=== PATIENT | male | born 1965 | race Caucasian/White ===

== ENCOUNTER → 2021-02-27 11:07 | Outpatient (BNVA) | payer BC, SELFPAY | PROVIDERS: PCP Nurse Practitioner Family; Referring Provider Nurse Practitioner Family; Visit Provider Surgery ==

== ENCOUNTER 2021-03-10 07:54 | Day surgery (SDC) | payer BC, SELFPAY ==
--- NOTE | 2021-03-06 10:49 | HO.ANESPROP2 ---
Documented by User: Margie Avila 03/06/21 10:50 HPI - Anesthesia Eval Consult details Narrative: 55yo M for Left Excision of Earlobe Keloid PMFSH Active Problems Active Problems: All Active Problems (Updated 02/27/21 @ 15:07 by Dougie Rome MD) Keloid scar of skin (Acute) Dermoid cyst of left ear (Acute) Past Medical History Medical History Smoker Family History Family History Father Lung cancer Mother Liver failure Sister Breast cancer Surgical History Surgical History H/O eye surgery H/O surgical removal of keloid History of back surgery Social History Social History Alcohol intake: current Alcohol intake frequency: a few times a week Smoking Status: Current every day smoker Cigarettes Per Day: 10 Use of substances other than those prescribed or required for medical reasons: No Are you DNR?: No Advance Directives: No Advance Directives Information Provided: Yes Meds Allergies Allergy/AdvReac Type Severity Reaction Status Date / Time No Known Allergies Allergy Verified 03/10/21 08:32 Home Medications Medication Instructions Recorded Confirmed Last Taken Type No Known Home Meds 01/14/21 02/27/21 Unknown History Exam Exam Date and Time: March 06, 2021 1049 Assessment and Plan Assessment Anesthesia Assessment: Chart Reviewed Documented by User: Katie Guaman 03/10/21 09:06 PMFSH Past Medical History Medical History Smoker Family History Family History Father Lung cancer Mother Liver failure Sister Breast cancer Family history of problems with anesthesia: No Surgical History Surgical History H/O eye surgery H/O surgical removal of keloid History of back surgery History of Problems with Anesthesia: No Social History Social History Alcohol intake: current Alcohol intake frequency: a few times a week Smoking Status: Current every day smoker Cigarettes Per Day: 10 Use of substances other than those prescribed or required for medical reasons: No Are you DNR?: No Advance Directives: No Advance Directives Information Provided: Yes Meds Allergies Allergy/AdvReac Type Severity Reaction Status Date / Time No Known Allergies Allergy Verified 03/10/21 08:32 Home Medications Medication Instructions Recorded Confirmed Last Taken Type No Known Home Meds 01/14/21 02/27/21 Unknown History Exam Height,Weight and Vital Signs: Vital Signs Temp Pulse Resp BP Pulse Ox 03/10/21 08:33 99.4 F 73 16 157/84 H 99 Airway Mallampati Class: II TM Dist: >3cm Neck ROM: Full Heart: RRR Lungs: CTAB Assessment and Plan Assessment Anesthesia Assessment: Anesthesia Plan Discussed and Chart Reviewed Final Anesthetic Review NPO: Yes ASA Class: II Final Preanesthetic Review: No Changes in Pt Med Stat, Meds/Allgs Chart Reviewed, Consent Obtained/Reviewed and Anes Risks/Benef Reviewed Patient Risk: Low Procedure Risk: Low Assessment/Block/Sedation in SS: Assess/Block/Sedation-SS Anesthetic Plan Anesthetic Plan: MAC: Disposition: Standard PACU
[2021-03-10 08:33] VITALS: BP 157/84; PULSE 73; RESP 16; TEMP 37.4; O2SAT 99; BMI 26.6
[2021-03-10] MEDS: Lactated Ringers 1,000 ML 100 ML IVCONT (08:51)
--- NOTE | 2021-03-10 09:25 | MHC.SHP ---
Pre-Procedural Eval Section A The patient is an INPATIENT: No Changes since office visit: Yes Patient answered all questions; No Cold of Flu in the past 2 weeks, No New Medical Problems and No Changes in Medication The History & Physical has been completed within 30 days and I have reviewed it.: Yes Section B Chief Complaint: Keloid scar of skin Allergies: Allergies Allergy/AdvReac Type Severity Reaction Status Date / Time No Known Allergies Allergy Verified 03/10/21 08:32 Plan Diagnosis/Plan: Unchanged I have reviewed the history and physical and performed a pertinent physical examination on my patient. No changes have occurred unless specified.
--- NOTE | 2021-03-10 10:42 | P.OP_ITS ---
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 Operative findings: Large keloid of the left ear lobe measuring approximately 1 cm. Specimen: Keloid left ear lobe Estimated blood loss: 5 mL Complications: None Procedure details: Patient brought to the OR and placed in a supine position. After administering light sedation the patient's left earlobe was prepped with Betadine and draped in a sterile fashion. A surgical time-out was called the consent confirmed. Patient received preoperative antibiotics and Venodyne boots were in place. Local anesthesia consisting of lidocaine 1% plus Sensorcaine 0.25% plain was infiltrated in the skin around the ear lobe. An elliptical incision was then created to wedge the keloid which measured approximately 1 cm. Dissection was continued down through the ear lobe, both anterior and posterior. This included a residual piercing which extended to the posterior wall of the ear lobe. There was were completely excised and sent to pathology for further examination. After assuring adequate hemostasis with electrocautery, skin was reapproximated using interrupted 5 0 nylon sutures. Pressure was held to maintain hemostasis. A pressure dressing was then applied and secured using paper tape. The patient tolerated procedure well. Sponge, instrument, and needle counts were reported as correct. The patient was transferred to PACU in stable condition.
[2021-03-10 10:45] VITALS: BP 130/89; PULSE 62; RESP 16; TEMP 37.3; O2SAT 98
[2021-03-10 11:00] VITALS: BP 144/77; PULSE 59; RESP 18; TEMP 37.2; O2SAT 97
== END 2021-03-10 11:24 | disposition home or self-care (01) ==
PROVIDERS: PCP Nurse Practitioner Family; Visit Provider Surgery
PROC: (CPT 11441; principal; 2021-03-10 09:40)
DX: L91.0 Hypertrophic scar (principal); L56.9 Acute skin change due to ultraviolet radiation, unspecified; F17.210 Nicotine dependence, cigarettes, uncomplicated
CPT/HCPCS: 11441; J0690; J2250; J3010

== ENCOUNTER → 2021-03-18 09:32 | Outpatient (BNVA) | payer BC, SELFPAY | PROVIDERS: PCP Nurse Practitioner Family; Visit Provider Surgery ==

== ENCOUNTER 2021-04-18 09:13 | Outpatient (REF) | payer BC, SELFPAY ==
[2021-04-18 12:10] LABS: Prostate Specific Antigen Scr 0.91 ng/mL (<0.05-4.0); TSH reflex Free T4 0.81 uIU/mL (0.32-4.0)
[2021-04-18 12:16] LABS: Alanine Aminotransferase 31 U/L (0-40); Albumin Level 4.2 g/dL (3.5-5.0); Alkaline Phosphatase 61 U/L (39-117); Anion Gap 13 (12-20); Aspartate Amino Transferase 21 U/L (5-37); Bilirubin Total 0.9 mg/dL (0.0-1.0); Blood Urea Nitrogen 14 mg/dL (9-16); Calcium 9.4 mg/dL (8.4-10.2); Carbon Dioxide 26 mmol/L (22-29); Chloride 105 mmol/L (96-108); Cholesterol 245 mg/dL; Estimated Glomerular Filt Rate > 60; Glucose Fasting 90 mg/dL (60-99); HDL Cholesterol 67 mg/dL; LDL Cholesterol Calculated 154 mg/dl; Potassium 4.1 mmol/L (3.3-5.1); Sodium 140 mmol/L (135-145); Total Protein 6.7 g/dL (6.5-8.0); Triglycerides 121 mg/dL
== END 2021-04-18 09:14 | disposition home or self-care (01) ==
LOC: HO.HMGCLDS 09:13
PROVIDERS: PCP Nurse Practitioner Family; Visit Provider Nurse Practitioner Family
DX: Z00.00 Encounter for general adult medical examination without abnormal findings (principal); Z12.5 Encounter for screening for malignant neoplasm of prostate
CPT/HCPCS: 36415; 80053; 80061; 84153; 84443

== ENCOUNTER → 2022-03-13 15:52 | Outpatient (BNVA) | payer OTHER, SELFPAY | PROVIDERS: PCP Nurse Practitioner Family; Referring Provider Nurse Practitioner Family; Visit Provider Nurse Practitioner | DX: R19.5 Other fecal abnormalities (principal); Z12.11 Encounter for screening for malignant neoplasm of colon | CPT/HCPCS: 99202; 99212 ==

== ENCOUNTER 2022-03-23 11:05 | Outpatient (REF) | payer OTHER, SELFPAY ==
[2022-03-23 14:04] LABS: Alanine Aminotransferase 35 U/L (0-40); Albumin Level 4.6 g/dL (3.5-5.0); Alkaline Phosphatase 70 U/L (39-117); Anion Gap 13 (12-20); Aspartate Amino Transferase 21 U/L (5-37); Bilirubin Total 0.7 mg/dL (0.0-1.0); Blood Urea Nitrogen 20 mg/dL (9-16); Carbon Dioxide 26 mmol/L (22-29); Chloride 103 mmol/L (96-108); Estimated Glomerular Filt Rate > 60; Glucose Random 118 mg/dL (60-115); Potassium 4.5 mmol/L (3.3-5.1); Sodium 137 mmol/L (135-145); Total Protein 7.3 g/dL (6.5-8.0)
== END 2022-03-23 11:06 | disposition home or self-care (01) ==
LOC: HO.HMGCLDS 11:05
PROVIDERS: PCP Nurse Practitioner Family; Visit Provider Nurse Practitioner
DX: R19.5 Other fecal abnormalities (principal)
CPT/HCPCS: 36415; 80053

== ENCOUNTER 2022-10-15 09:57 | Outpatient (REF) | payer OTHER, SELFPAY ==
[2022-10-15 11:14] LABS: MANUAL DIFF FLAG NO
[2022-10-15 11:17] LABS: Appearance Urine Clear; Color Urine Yellow; Glucose Urine UA Negative (Negative); Leukocyte Esterase Urine Negative (Negative); Nitrite Urine Negative (Negative); PH 6.5 (5.0-9.0); Specific Gravity - Urine 1.025 (1.005-1.025); Urine Blood Negative (Negative); Urine Ketones Trace mg/dL (Negative); Urine Protein Negative (Neg-Trace)
[2022-10-15 11:19] LABS: Basophils Percent Auto 0.4 % (0-2); Eosinophils Absolute Auto 0.4 X10*3/uL (0.0-0.4); Eosinophils Percent Auto 5.8 % (0-4); Hematocrit 45.2 % (42.0-52.0); Hemoglobin 15.1 g/dl (14.0-18.0); Imm Gran Abs Auto 0.02 X10*3/uL (0.00-0.03); Imm Gran Pct Auto 0.3 % (0.0-0.4); Lymphocytes Absolute Auto 3.3 X10*3/uL (1.2-4.9); Lymphocytes Percent Auto 42.9 % (20-40); Mean Corpuscular HGB Conc 33.4 g/dl (31.0-36.0); Mean Corpuscular Hemoglobin 31.3 pg (27.0-33.0); Mean Corpuscular Volume 93.8 fL (80.0-98.0); Monocytes Absolute Auto 0.6 X10*3/uL (0.1-1.2); Monocytes Percent Auto 7.5 % (2-11); Neutrophils Absolute Auto 3.3 x10*3/uL (2.0-8.3); Neutrophils Percent Auto 43.1 % (45-73); Platelet Count 296 X10*3/uL (160-400); Red Blood Count 4.82 X10*6/uL (4.60-5.80); Red Cell Distribution Width 12.2 % (11.0-16.0); White Blood Count 7.6 X10*3/uL (4.8-10.8)
[2022-10-15 12:18] LABS: Alanine Aminotransferase 36 U/L (0-40); Albumin Level 4.4 g/dL (3.5-5.0); Alkaline Phosphatase 66 U/L (39-117); Anion Gap 10 (12-20); Aspartate Amino Transferase 23 U/L (5-37); Bilirubin Total 0.8 mg/dL (0.0-1.0); Blood Urea Nitrogen 18 mg/dL (9-16); Calcium 9.4 mg/dL (8.4-10.2); Carbon Dioxide 29 mmol/L (22-29); Chloride 103 mmol/L (96-108); Cholesterol 191 mg/dL; Estimated Glomerular Filt Rate > 60; Glucose Fasting 104 mg/dL (60-99); HDL Cholesterol 52 mg/dL; LDL Cholesterol Calculated 110 mg/dl; Potassium 4.2 mmol/L (3.3-5.1); Prostate Specific Antigen Scr 1.42 ng/mL (<0.05-4.0); Sodium 138 mmol/L (135-145); Total Protein 6.8 g/dL (6.5-8.0); Triglycerides 146 mg/dL
== END 2022-10-15 09:58 | disposition home or self-care (01) ==
LOC: HO.HMGCLDS 09:57
PROVIDERS: PCP Nurse Practitioner Family; Visit Provider Nurse Practitioner Family
DX: Z12.5 Encounter for screening for malignant neoplasm of prostate (principal); E78.5 Hyperlipidemia, unspecified; I10 Essential (primary) hypertension
CPT/HCPCS: 36415; 80053; 80061; 81003; 84153; 84443; 85025

== ENCOUNTER → 2022-11-25 09:36 | Outpatient (BNVA) | payer OTHER, SELFPAY | PROVIDERS: PCP Nurse Practitioner Family; Visit Provider Orthopaedic Surgery | DX: M72.0 Palmar fascial fibromatosis [Dupuytren] (principal) | CPT/HCPCS: 99202 ==

== ENCOUNTER 2023-04-27 08:32 | Outpatient (AMB) | payer OTHER, SELFPAY ==
[2023-04-27 08:37] VITALS: BP 148/96; PULSE 67; O2SAT 100; BMI 27.6
--- NOTE | 2023-04-27 08:37 | A.OFFPC_ITS ---
Vital Signs 04/27/23 08:37 Height 5 ft 9 in Weight 187 lb BMI 27.6 BP 148/96 H Blood Pressure Location Rt brachial Position Sitting Pulse 67 Pulse Source Pulse Oximeter Pulse Oximetry (%) 100 Oxygen Delivery Method Room Air Intake Visit Reasons: 6 month follow up Allergies No Known Allergies Allergy (Verified 04/27/23 08:38) Medication List - Last Reconciled 04/27/23 by LELAND Samuels atorvastatin 10 mg PO BEDTIME 90 days bisacodyl (Dulcolax (bisacodyl)) 10 mg (2 x 5 mg) PO ONCE 1 day latanoprost 0.005% 1 drp ophthalmic (eye) BEDTIME [id number] 140-9-5.2 gram (Plenvu) 1 ea PO BID polyethylene glycol 3350 (Miralax) 238 grams PO ONCE 1 day timolol maleate 0.5% drps ophthalmic (eye) BID Tobacco use date assessed: 04/27/23 Dental Screening Dental Screen Date: 04/27/23 Did you have a dental visit in the last 12 months?: No Did you have a dental problem in the last 6 months where you did not have access to dental care?: No HPI 6 month follow up HPI Details HTN: not hypertensive at home (see previous logs). 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 Dyslipidemia: On atorvastatin 10mg. Will order labs. Denies chest pain, shortness of breath, headache, dizziness, and blurred vision. 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 Betito Locke, Nancy Mendosa, Álvaro Escoto and colleagues, with an educational florence from [employer]. Review of Systems Const Reports as per HPI Physical exam (Primary Care) Vital Signs: Last Vital Signs Pulse 67 04/27/23 08:37 BP 148/96 H 04/27/23 08:37 Pulse Ox 100 04/27/23 08:37 Oxygen Delivery Method Room Air 04/27/23 08:37 BMI result Body Mass Index 27.6 Tobacco/Smoking Status: Tobacco use Status Tobacco use date assessed 04/27/23 04/27/23 08:41 Patient Tobacco Use Status Current everyday Tobacco 04/27/23 08:41 e-Cigarette/Vaping Use Never Used 04/27/23 08:41 Thrive Assessment: Date of Thrive Assessment Date Thrive assessed 04/15/22 04/27/23 08:41 Const General: cooperative, healthy appearing, comfortable and no acute distress Orientation/consciousness: patient oriented x3 Resp Effort & Inspection: normal respiratory effort Auscultation: clear to auscultation bilaterally Cardio Palpation: normal PMI Rate: regular rate Rhythm: regular rhythm Heart sounds: S1 normal heart sound present, S2 normal heart sound present and no murmurs Neuro General: patient oriented x3 Extrem Right lower extremity: no edema Left lower extremity: no edema Psych Appearance: grossly normal Mental Status: mental status grossly normal Speech and movement: Normal speech and movement present Affect: normal affect Attitude: cooperative Thought process: Normal thought process present Thought content: Normal thought content present Insight: Good insight present (Psych) Judgement: Good judgement present (Psych) Assessment and Plan Assessment & Plan (1) HTN (hypertension): Code(s): I10 - Essential (primary) hypertension Plan: Continue to monitor BP at home (2) Dyslipidemia: Code(s): E78.5 - Hyperlipidemia, unspecified Plan: Labs ordered (3) Screening PSA (prostate specific antigen): Code(s): Z12.5 - Encounter for screening for malignant neoplasm of prostate Plan: PSA ordered Plan The patient agreed to the use of a registered medical assistant for this encounter. Scribed for LISA Shah-BC by Susana Lucia registered medical assistant, on 04/27/2023 at 08:50 EST. Orders: Orders Comprehensive [place]ument. Panel Fast Today E78.5 - Hyperlipidemia, unspecified, I10 - Essential (primary) hypertension Lipid Panel Today E78.5 - Hyperlipidemia, unspecified, I10 - Essential (primary) hypertension TSH reflex Free T4 Today E78.5 - Hyperlipidemia, unspecified, I10 - Essential (primary) hypertension Complete Blood Count Auto Diff Today E78.5 - Hyperlipidemia, unspecified, I10 - Essential (primary) hypertension UA CC w/rflx Micro + Cult Today E78.5 - Hyperlipidemia, unspecified, I10 - Essential (primary) hypertension Prostate Specific Antigen Scr Today Z12.5 - Encounter for screening for malignant neoplasm of prostate Coding Level of Care Code Est Pt Level 3 (52144) Diagnoses HTN (hypertension) I10 Dyslipidemia E78.5 Screening PSA (prostate specific antigen) Z12.5
== END 2023-04-27 09:00 | disposition home or self-care (01) ==
PROVIDERS: PCP Nurse Practitioner Family; Visit Provider Nurse Practitioner Family
DX: I10 Essential (primary) hypertension (principal); E78.5 Hyperlipidemia, unspecified; Z12.5 Encounter for screening for malignant neoplasm of prostate
CPT/HCPCS: 99213

== ENCOUNTER 2023-09-23 13:19 | Outpatient (AMB) | payer OTHER, SELFPAY ==
--- NOTE | 2023-09-23 13:23 | MHC.PC.OV ---
Vital Signs 09/23/23 13:27 Height 5 ft 9 in Weight 180 lb BMI 26.6 BP 150/100 H Blood Pressure Location Lt brachial Position Sitting Pulse 86 Pulse Source Pulse Oximeter Pulse Oximetry (%) 99 Oxygen Delivery Method Room Air Intake Visit Reasons: PE+NEEDS PHQ9+THRIVE Allergies No Known Allergies Allergy (Verified 09/23/23 15:53) Medication List - Last Reconciled 09/23/23 by LELAND Samuels atorvastatin 10 mg PO BEDTIME 90 days latanoprost 0.005% 1 drp ophthalmic (eye) BEDTIME [id number]-C 140-9-5.2 gram (Plenvu) 1 ea PO BID polyethylene glycol 3350 (Miralax) 238 grams PO ONCE 1 day timolol maleate 0.5% drps ophthalmic (eye) BID Tobacco use date assessed: 04/27/23 Dental Screening Dental Screen Date: 09/23/23 Did you have a dental visit in the last 12 months?: No Did you have a dental problem in the last 6 months where you did not have access to dental care?: No Was dental information given to patient?: Patient has dentist HPI PE+NEEDS PHQ9+THRIVE HPI Details Pt is here for a PE. Labs have been ordered, encouraged pt to have these drawn. PSA has been ordered as well. Denies dribbling with urination, weak stream, and frequent nocturia. Pt's cologuard was positive. He was referred to GI for colonoscopy but has not called back to schedule. Pt agrees to colonoscopy now, will contact GI office. Pt is a smoker, half a pack per day, does not qualify for low-dose CTs. HTN: Blood pressure is elevated today. Will start hydrochlorothiazide 12.5mg. Denies chest pain, shortness of breath, headache, dizziness, and blurred vision. Informed pt that he can obtain his shingles vaccine from his pharmacy. 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 1. Little interest or pleasure in doing things: not at all 2. Feeling down, depressed, or hopeless: not at all 3. Trouble falling or staying asleep, or sleeping too much: not at all 4. Feeling tired or having little energy: not at all 5. Poor appetite or overeating: not at all 6. Feeling bad about yourself - or that you are a failure or have let yourself or your family down: not at all 7. Trouble concentrating on things, such as reading the newspaper or watching television: not at all 8. Moving or speaking so slowly that other people could have noticed. Or the opposite - being so fidgety or restless that you have been moving around a lot more than usual: not at all 9. Thoughts that you would be better off or of hurting yourself in some way: not at all Total score: 0 Depression Screening Interpretation: Negative Depression Screening Done: Yes Source: Developed by Drs. Betito Locke, Nancy Mendosa, Álvaro Escoto and colleagues, with an educational florence from [employer]. Thrive Questionnaire Date Thrive assessed: 09/23/23 I am a: Patient What is your living situation today?: I have a steady place to live Within the past 12 months, did the food you bought not last and you didn't have the money to get more?: Never true Within the past 12 months, did you worry whether your food would run out before you got money to buy more?: Never true Do you have trouble paying for medicines?: No Do you have trouble getting transportation to medical appointments?: No Do you have trouble paying your heating and electricity bill?: No Do you have trouble taking care of your child, family member or friend?: No Do you have trouble with day-to-day activities such as bathing, preparing meals, shopping, managing finances, etc.?: No Are you currently unemployed and looking for a job?: No Are you interested in more education?: No AUDIT C Alcohol Use Questionnaire (AUDIT-C) 1. How often do you have a drink containing alcohol?: 2-3 times a week 2. How many drinks containing alcohol do you have on a typical day when you are drinking?: 3 or 4 3. How often do you have six or more drinks on one occasion?: Never Total Score: 4 Score Reviewed/Action Taken: No SUSSY-7 AMB Questionnaire SUSSY-7 Date SUSSY - 7 assessed: 09/23/23 Feeling nervous, anxious, or on edge: 0 = Not at all Not being able to stop or control worryin = Not at all Worrying too much about different things: 0 = Not at all Trouble relaxin = Not at all Being so restless that it is hard to sit still: 0 = Not at all Becoming easily annoyed or irritable: 0 = Not at all Feeling afraid as if something awful might happen: 0 = Not at all Total SUSSY-7 score (0-4 normal; 5-9 mild; 10-14 moderate; 15-21 severe): 0 Source: Developed by Drs. Betito Locke, Nancy Mendosa, Álvaro Escoto and colleagues, with an educational florence from [employer]. SUSSY-7 Assessment Billing SUSSY-7 Assessment Tool: SUSSY-7 Assessment 77777 Review of Systems Const Denies chills and Denies fever(s) Eyes Denies blurry vision ENT Denies vertigo, Denies dizziness and Denies sore throat Card Denies chest pain at rest, Denies chest pain with activity, Denies diaphoresis, Denies dyspnea and Denies dyspnea on exertion Resp Denies cough, Denies dyspnea, Denies dyspnea on exertion and Denies wheezing GI Denies abdominal pain, Denies melena, Denies hematochezia, Denies constipation, Denies diarrhea and Denies loose stools Denies hematuria Musc Denies numbness and Denies tingling Skin/Breast Denies lesions Neuro Denies vertigo, Denies dizziness, Denies numbness and Denies tingling Psych Denies anxiety, Denies depression, Denies homicidal ideation, Denies suicidal ideation and Denies other (substance abuse) Aller/Immun Denies wheezing Physical exam (Primary Care) Vital Signs: Last Vital Signs Pulse 86 09/23/23 13:27 BP 150/100 H 09/23/23 13:27 Pulse Ox 99 09/23/23 13:27 Oxygen Delivery Method Room Air 09/23/23 13:27 BMI result Body Mass Index 26.6 Tobacco/Smoking Status: Tobacco use Status Tobacco use date assessed 04/27/23 09/23/23 13:25 Patient Tobacco Use Status Current everyday Tobacco 09/23/23 13:25 e-Cigarette/Vaping Use Never Used 09/23/23 13:25 PHQ-9: PHQ-9 Score PHQ-9: Total score 0 09/23/23 15:59 Depression Screening Interpretation: Negative Thrive Assessment: Date of Thrive Assessment Date Thrive assessed 09/23/23 09/23/23 15:59 Const General: cooperative Nutritional Appearance: well nourished Orientation/consciousness: patient oriented x3 HENMT Head: Yes normal to inspection, Yes normocephalic and Yes atraumatic Ears: TM's normal bilaterally Eyes General: appearance normal, both eyes and all related structures Alignment and Position: alignment normal and position normal Neck Neck: Yes normal visual inspection and Yes no lymphadenopathy Thyroid: Thyroid normal Resp Effort & Inspection: normal respiratory effort Auscultation: clear to auscultation bilaterally Cardio Rate: regular rate Rhythm: regular rhythm Heart sounds: S1 normal heart sound present, S2 normal heart sound present and no murmurs GI Palpation (GI): Soft to palpation and nontender Auscultation: normal bowel sounds Male General Exam: Yes normal external exam Penis: normal penis Scrotum: scrotum normal, testes descended bilaterally and no inguinal hernias Testes: no testicular mass Skin Rashes: no rashes Neuro General: patient oriented x3, moves all extremities, no focal motor deficits and deep tendon reflexes 2+ bilaterally Romberg Test: Negative Psych Appearance: grossly normal Mental Status: mental status grossly normal Speech and movement: Normal speech and movement present Affect: normal affect Attitude: cooperative Thought process: Normal thought process present Thought content: Normal thought content present Insight: Good insight present (Psych) Judgement: Good judgement present (Psych) Assessment and Plan Assessment & Plan (1) HTN (hypertension): Code(s): I10 - Essential (primary) hypertension Plan: Starting hctz, pt will cont to monitor BP, call me if sustaining above 140/90 (2) Physical exam: Code(s): Z00.00 - Encounter for general adult medical examination without abnormal findings Plan The patient agreed to the use of a medical records receptionist for this encounter. Scribed for LELAND Shah by Susana Lucia medical records receptionist, on 09/23/2023 at 13:35 EST. Medications: New triamcinolone acetonide 0.1% 1 appl topical BID 80 grams 2RF hydrochlorothiazide 12.5 mg PO DAILY 90 tabs 0RF 90 days Coding Level of Care Code Est Pt Prev Care 40-64y(99048) Diagnoses HTN (hypertension) I10 Physical exam Z00.00 Additional Codes SUSSY-7 Assessment Billing - SUSSY-7 Assessment Tool: SUSSY-7 Assessment 56178 ([id number])
[2023-09-23 13:27] VITALS: BP 150/100; PULSE 86; O2SAT 99; BMI 26.6
== END 2023-09-23 14:10 | disposition home or self-care (01) ==
PROVIDERS: PCP Nurse Practitioner Family; Visit Provider Nurse Practitioner Family
DX: I10 Essential (primary) hypertension (principal); Z00.00 Encounter for general adult medical examination without abnormal findings
CPT/HCPCS: 99396

== ENCOUNTER 2023-11-09 08:06 | Outpatient (REF) | payer OTHER, SELFPAY ==
[2023-11-09 11:38] LABS: Appearance Urine Clear; Color Urine Yellow; Glucose Urine UA Negative (Negative); Leukocyte Esterase Urine Negative (Negative); Nitrite Urine Negative (Negative); PH 5.5 (5.0-9.0); Urine Blood Negative (Negative); Urine Ketones Negative (Negative); Urine Protein Negative (Neg-Trace)
[2023-11-09 11:44] LABS: MANUAL DIFF FLAG NO
[2023-11-09 11:59] LABS: Basophils Absolute Auto 0.1 X10*3/uL (0.0-0.2); Basophils Percent Auto 0.7 % (0-2); Eosinophils Absolute Auto 0.3 X10*3/uL (0.0-0.4); Eosinophils Percent Auto 4.8 % (0-4); Hematocrit 44.7 % (42.0-52.0); Imm Gran Abs Auto 0.01 X10*3/uL (0.00-0.03); Imm Gran Pct Auto 0.1 % (0.0-0.4); Lymphocytes Absolute Auto 2.6 X10*3/uL (1.2-4.9); Lymphocytes Percent Auto 38.2 % (20-40); Mean Corpuscular HGB Conc 33.6 g/dl (31.0-36.0); Mean Corpuscular Hemoglobin 31.4 pg (27.0-33.0); Mean Corpuscular Volume 93.7 fL (80.0-98.0); Mean Platelet Volume 9.7 fL (9.4-12.4); Monocytes Absolute Auto 0.6 X10*3/uL (0.1-1.2); Monocytes Percent Auto 8.3 % (2-11); Neutrophils Absolute Auto 3.2 x10*3/uL (2.0-8.3); Neutrophils Percent Auto 47.9 % (45-73); Platelet Count 283 X10*3/uL (160-400); Red Blood Count 4.77 X10*6/uL (4.60-5.80); Red Cell Distribution Width 12.3 % (11.0-16.0); White Blood Count 6.7 X10*3/uL (4.8-10.8)
[2023-11-09 12:21] LABS: Alanine Aminotransferase 27 U/L (0-40); Albumin Level 4.3 g/dL (3.5-5.0); Alkaline Phosphatase 54 U/L (39-117); Anion Gap 10 (12-20); Aspartate Amino Transferase 22 U/L (5-37); Bilirubin Total 0.9 mg/dL (0.0-1.0); Blood Urea Nitrogen 14 mg/dL (9-16); Calcium 9.6 mg/dL (8.4-10.2); Carbon Dioxide 31 mmol/L (22-29); Chloride 100 mmol/L (96-108); Cholesterol 187 mg/dL (<200); Estimated Glomerular Filt Rate > 60; Glucose Fasting 107 mg/dL (60-99); HDL Cholesterol 59 mg/dL (>40); LDL Cholesterol Calculated 95 mg/dL (<100); Potassium 3.8 mmol/L (3.3-5.1); Sodium 137 mmol/L (135-145); Total Protein 7.2 g/dL (6.5-8.0); Triglycerides 167 mg/dL (<150)
[2023-11-09 12:26] LABS: Prostate Specific Antigen Scr 0.97 ng/mL (<0.05-4.0)
[2023-11-09 12:43] LABS: TSH reflex Free T4 1.75 uIU/mL (0.32-4.0)
== END 2023-11-09 08:07 | disposition home or self-care (01) ==
LOC: HO.HMGCLDS 08:06
PROVIDERS: PCP Nurse Practitioner Family; Visit Provider Nurse Practitioner Family
DX: I10 Essential (primary) hypertension (principal); E78.5 Hyperlipidemia, unspecified; Z12.5 Encounter for screening for malignant neoplasm of prostate
CPT/HCPCS: 36415; 80053; 80061; 81003; 84153; 84443; 85025

== ENCOUNTER 2023-12-30 09:43 | Day surgery (SDC) | payer OTHER, SELFPAY ==
--- NOTE | 2023-12-30 10:01 | P.CONAN_ITS ---
HPI - Anesthesia Eval Consult details Narrative: 58 yo male patient for Colonoscopy PMFSH Active Problems Active Problems: All Active Problems (Updated 12/30/23 @ 10:01 by Katie Guaman MD) Dupuytren's disease of palm of right hand (Acute) Dupuytren contracture (Acute) Screening PSA (prostate specific antigen) (Acute) HTN (hypertension) (Acute) Positive colorectal cancer screening using Cologuard test (Acute) Pre-op evaluation (Acute) Dyslipidemia (Acute) Keloid scar of skin (Acute) Dermoid cyst of left ear (Acute) Smoker-Vapes Past Medical History Medical History Retinal detachment Smoker Family History Family History Father Lung cancer Mother Liver failure Sister Breast cancer Family history of problems with anesthesia: No Surgical History Surgical History History of back surgery H/O eye surgery H/O surgical removal of keloid History of Problems with Anesthesia: No Social History Social History Housing: House Alcohol intake: current Alcohol intake frequency: a few times a week Patient Tobacco Use Status: Current everyday Tobacco user Cigarettes Per Day: 4 Years Smoked: 5 e-Cigarette/Vaping Use: Never Used Second Hand Smoke Exposure: No service: No Current occupational status: employed and retired 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 Current occupational exposures/hazards: No Cognitive needs: No Hearing needs: No Vision needs: No Meds Allergies Allergy/AdvReac Type Severity Reaction Status Date / Time No Known Allergies Allergy Verified 09/23/23 15:53 Home Medications Medication Instructions Recorded Confirmed Last Taken Type latanoprost 0.005 % eye drops 1 drp ophthalmic (eye) BEDTIME 03/13/22 12/30/23 Unknown History timolol maleate 0.5 % eye drops drp ophthalmic (eye) BID 03/13/22 09/23/23 Unknown History Exam Height,Weight and Vital Signs: Height 5 ft 9 in Weight 93.894 kg Vital Signs Temp Pulse Resp BP Pulse Ox O2 Del Method 12/30/23 10:28 97.3 F 48 L 18 157/79 H 97 Room Air Airway Mallampati Class: I TM Dist: >3cm Neck ROM: Full Loose/Missing/Broken Teeth: No (Denies broken or loose teeth) Heart: RRR Lungs: CTAB Assessment and Plan Assessment Anesthesia Assessment: Anesthesia Plan Discussed and Chart Reviewed Final Anesthetic Review Family History of Problems with Anesthesia: No History of Problems with Anesthesia: No NPO: Yes ASA Class: II Final Preanesthetic Review: No Changes in Pt Med Stat, Meds/Allgs Chart Reviewed, Consent Obtained/Reviewed and Anes Risks/Benef Reviewed Patient Risk: Low Procedure Risk: Low Assessment/Block/Sedation in SS: Assess/Block/Sedation-SS Anesthetic Plan Anesthetic Plan: MAC: and TIVA Disposition: Standard PACU
--- NOTE | 2023-12-30 10:10 | MHC.SHP ---
Pre-Procedural Eval Section A - 24 Hr Update-Section A only Date of Service: 12/30/23 Section B - Complete if H&P > 30 days Chief Complaint: Other fecal abnormalities Details of Present Illness: pos cologuard Relevant Family History (Specify if Yes): No Relevant Social History: None Present Medications: see Short Stay Collaborative assessment Medical History: Significant History (Retinal detachment Smoker) History of Previous Operations: Relevant previous surgery/procedure and date(s) (History of back surgery H/O eye surgery H/O surgical removal of keloid) Allergies: Allergies Allergy/AdvReac Type Severity Reaction Status Date / Time No Known Allergies Allergy Verified 09/23/23 15:53 Review of Systems Sugical H&P ROS: Negative: Constitution, Cardiovascular, Respiratory, Neurological, Psychiatric, Hem-Onc, Allergic/Immunologic, Gastrointestinal, Genitourinary, Musculoskeletal, Integumentary, Endocrine and Eyes/Ears/Nose/Throat Exam Surgical H&P Exam: Normal: HEENT, Normal: Heart, Normal: Lungs, Normal: Extremities, Normal: Abdomen, Normal: Skin and Normal: Neurological Plan Diagnosis/Plan: Unchanged I have reviewed the history and physical and performed a pertinent physical examination on my patient. No changes have occurred unless specified. Time Spent With Patient Time: Total time managing care of this patient today ____ minutes.
[2023-12-30 10:28] VITALS: BP 157/79; PULSE 48; RESP 18; TEMP 36.3; O2SAT 97; BMI 30.6
--- NOTE | 2023-12-30 10:42 | W.PM.OPN ---
Operative Note Operative Note Date of Service: 12/30/23 Narrative: Operative Information Procedure Description: Colonoscopy Indication: pos cologuard Anesthesia: MAC COLONOSCOPY Instrument: Olympus variable stiffness pediatric scope 190L then upper scope due to tight sigmoid Colonoscopy Monitoring: Vital signs and clinical assessment, continuous EKG monitoring, Pulse oximetry, Carbon Dioxide monitoring and blood pressure monitoring were done throughout the procedure. Colon withdrawal time was 10 minutes. Procedure: The patient was placed in the left lateral decubitis position and pre-procedure medications were administered. After a digital rectal examination of the ano-rectum, the video colonoscope was inserted into the rectum and advanced through the colon to the cecum/TI. The colonoscope was slowly withdrawn in a retrograde panoramic fashion and the colon mucosa was carefully examined including a retroflexed view of the rectum. Findings and interventions are described below. Procedure Difficulty: v difficult (changed to upper scope and pressure on both sides of abdomen and changed him to supine.) Findings: Terminal Ileum-normal Cecum:normal Ascending Colon: normal Transverse Colon -normal Descending Colon:normal Sigmoid Colon: severe diverticulosis with tight angulated colon, x2 sessile polyps 10 mm removed with cold snare Rectum: Retroflexion with medium sized internal hemorrhoids seen, grade I Anorectum - normal Intervention: cold snare Colon preparation: [place] Bowel Preparation Scale Right colon; 2 Transverse colon: 2 Left colon; 2 (0 = Unprepared colon segment with mucosa not seen due to solid stool that cannot be cleared. 1 = Portion of mucosa of the colon segment seen, but other areas of the colon segment not well seen due to staining, residual stool and/or opaque liquid. 2 = Minor amount of residual staining, small fragments of stool and/or opaque liquid, but mucosa of colon segment seen well. 3 = Entire mucosa of colon segment seen well with no residual staining, small fragments of stool or opaque liquid) Impression and Post Procedure Diagnosis: diverticulosis colon polyps internal hemorrhoids Plan: High fiber diet leaflet Avoid straining at stool, epsom salts and sitz bath, anusol supps or cream Repeat Colonoscopy in 5 years if adenomatous, 10 years if hyperplastic or earlier if clinically indicated Above findings were reviewed with the patient and relevant handouts were provided if indicated.
[2023-12-30] MEDS: Lactated Ringers 1,000 ML 100 ML IVCONT (10:47)
[2023-12-30 11:39] VITALS: BP 105/56; PULSE 52; RESP 12; TEMP 36.1; O2SAT 96
[2023-12-30 11:54] VITALS: BP 111/73; PULSE 50; RESP 16; TEMP 36.1; O2SAT 96
== END 2023-12-30 13:00 | disposition home or self-care (01) ==
PROVIDERS: PCP Nurse Practitioner Family; Visit Provider Internal Medicine Gastroenterology
PROC: 0DJD8ZZ Inspection of Lower Intestinal Tract, Via Natural or Artificial Opening Endoscopic (ICD-10-PCS; CPT 45378; principal; 2023-12-30 12:30)
DX: R19.5 Other fecal abnormalities (principal); K63.5 Polyp of colon; K57.30 Diverticulosis of large intestine without perforation or abscess without bleeding; K64.0 First degree hemorrhoids; I10 Essential (primary) hypertension; E78.5 Hyperlipidemia, unspecified; Z79.899 Other long term (current) drug therapy; Z86.69 Personal history of other diseases of the nervous system and sense organs; Z98.890 Other specified postprocedural states; F17.210 Nicotine dependence, cigarettes, uncomplicated
CPT/HCPCS: 45385; 88305; J2704

== ENCOUNTER → 2023-12-30 09:43 | Outpatient (BNV) | payer OTHER, SELFPAY | PROVIDERS: PCP Nurse Practitioner Family; Visit Provider Internal Medicine Gastroenterology | DX: Z12.11 Encounter for screening for malignant neoplasm of colon (principal); R19.5 Other fecal abnormalities; K63.5 Polyp of colon; K57.30 Diverticulosis of large intestine without perforation or abscess without bleeding | CPT/HCPCS: 45385 ==

== ENCOUNTER 2024-10-09 10:12 | Outpatient (AMB) | payer OTHER, SELFPAY ==
[2024-10-09 10:19] VITALS: BP 130/74; PULSE 62; O2SAT 98; BMI 27.2
--- NOTE | 2024-10-09 10:19 | A.OFFPC_ITS ---
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 Required: No Accompanied by: Self / Same As Patient Allergies No Known Allergies Allergy (Verified 10/09/24 10:19) Medication List - Last Reconciled 10/09/24 by LISA Samuels- atorvastatin 10 mg PO BEDTIME 90 days hydrochlorothiazide 12.5 mg PO DAILY 90 days latanoprost 0.005% 1 drp ophthalmic (eye) BEDTIME timolol maleate 0.5% drps ophthalmic (eye) BID triamcinolone acetonide 0.1% 1 appl topical BID Tobacco use date assessed: 10/09/24 Dental Screening Dental Screen Date: 10/09/24 Did you have a dental visit in the last 12 months?: Yes Did you have a dental problem in the last 6 months where you did not have access to dental care?: No Was dental information given to patient?: Patient has dentist HPI PE HPI Details History of Present Illness The patient is a 58-year-old male presenting for a routine physical examination. He has a significant smoking history with a 20-year pack history, contributing to his elevated risk for lung disease. The patient reports no history of blood in the stool, constipation, diarrhea, chest pain, shortness of breath, numbness, tingling, anxiety, depression, suicidal ideation, or homicidal ideation. During previous assessments, there was a suspicion of benign prostatic hyperplasia, with findings indicating a slight enlargement of the prostate but no nodules detected upon digital rectal examination. The patient's previous colon screening is noted to be up to date. There is an expressed interest in participating in a low-dose CT scan program, primarily as a preventative measure due to his smoking history. Health Maintenance - Referral given for participation in lo w-dose CT scan lung cancer screening program due to significant smoking history - Encouragement to maintain up-to-date c olon cancer screening - Recommendation to have PSA testing per formed for prostate health monitoring Social History - Smoker with a 20-year pack history Review of Systems - Gastrointestinal: Denies blood in stoo l, constipation, diarrhea - Psychological: Denies depression, anxi ety, suicidal ideation, homicidal ideation - Respiratory: Denies shortness of breat h - Cardiovascular: Denies chest pain - Neurological: Denies numbness, tinglin g - Lymphatic: Denies lymphadenopathy Physical Exam General: Cooperative, healthy appearing, comfortable, no acute distress and well developed Orientation: Patient oriented x3 Limitations: No limitations Head: Normal to inspection Ears: Hearing grossly normal bilaterally Nose: Normal external nose present Face and sinus: Normal facial exam Eyes: Appearance normal, both eyes and all related structures Neck: Normal visual inspection and Yes full ROM Respiratory: Normal respiratory effort and able to speak in complete sentences. Clear to auscultation bilaterally Cardiovascular: Regular rate and rhythm. Normal S1 and S2 : MARLI: smooth central groove, ? very slightly enlarged, no nodules palpated. GI: Normal to inspection. Soft to palpation and nontender Skin: No rashes or lesions noted Neuro: Patient oriented x3 Extremities: Normal to inspection Results Plan - The patient expresses interest in the low-dose CT scan program, and referral is provided to assess for lung abnormalities due to long-term smoking. - Advise follow-up PSA testing to [facility] r prostate health given the slight enlargement observed. Patient was informed and verbally consented to the use of an ambient scribe for clinic note documentation during this visit. Discussion Notes The patient and I discussed his interest in the low-dose CT scan program as a preventative measure, given his long-term smoking history. I informed him about the screening's purpose in early detection of potential lung issues. We reviewed his current prostate health, considering the slightly enlarged prostate, and I recommended follow-up with PSA testing to monitor for any changes. I emphasized the importance of keeping all preventative screenings, including colonoscopy, up to date, and provided instructions for upcoming lab work. Patient Instructions - Proceed with recommended low-dose CT s can for lung health evaluation. - Ensure completion of PSA testing to [facility] prostate health. - Continue with regular colon cancer scr eening as appropriate. - Schedule follow-up appointments as nerenay michelle to review all test results. 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 1. Little interest or pleasure in doing things: not at all 2. Feeling down, depressed, or hopeless: not at all 3. Trouble falling or staying asleep, or sleeping too much: not at all 4. Feeling tired or having little energy: not at all 5. Poor appetite or overeating: not at all 6. Feeling bad about yourself - or that you are a failure or have let yourself or your family down: not at all 7. Trouble concentrating on things, such as reading the newspaper or watching television: not at all 8. Moving or speaking so slowly that other people could have noticed. Or the opposite - being so fidgety or restless that you have been moving around a lot more than usual: not at all 9. Thoughts that you would be better off or of hurting yourself in some way: not at all Total score: 0 Depression Screening Interpretation: Negative Depression Screening Done: Yes 51649 - PHQ-9 Billing: Yes Source: Developed by Drs. Betito Locke, Nancy Mendosa, Álvaro Escoto and colleagues, with an educational florence from [employer]. Thrive Questionnaire Date Thrive assessed: 10/09/24 I am a: Patient What is your living situation today?: I have a steady place to live Within the past 12 months, did the food you bought not last and you didn't have the money to get more?: I choose not to answer this question Within the past 12 months, did you worry whether your food would run out before you got money to buy more?: I choose not to answer this question Do you have trouble paying for medicines?: No Do you have trouble getting transportation to medical appointments?: No Do you have trouble paying your heating and electricity bill?: I choose not to answer this question Do you have trouble taking care of your child, family member or friend?: No Do you have trouble with day-to-day activities such as bathing, preparing meals, shopping, managing finances, etc.?: No Are you currently unemployed and looking for a job?: I choose not to answer this question Are you interested in more education?: No Please select the resources that you would like help with: None Currently or been in a relationship where the following occur: I choose not to answer THRIVE Score: 0 AUDIT C Alcohol Use Questionnaire (AUDIT-C) 1. How often do you have a drink containing alcohol?: 2-3 times a week 2. How many drinks containing alcohol do you have on a typical day when you are drinking?: 3 or 4 3. How often do you have six or more drinks on one occasion?: Monthly Total Score: 6 Score Reviewed/Action Taken: Yes SUSSY-7 AMB Questionnaire SUSSY-7 Date SUSSY - 7 assessed: 10/09/24 Feeling nervous, anxious, or on edge: 0 = Not at all Not being able to stop or control worryin = Not at all Worrying too much about different things: 0 = Not at all Trouble relaxin = Not at all Being so restless that it is hard to sit still: 0 = Not at all Becoming easily annoyed or irritable: 0 = Not at all Feeling afraid as if something awful might happen: 0 = Not at all Total SUSSY-7 score (0-4 normal; 5-9 mild; 10-14 moderate; 15-21 severe): 0 Source: Developed by Drs. Betito Locke, Nancy Mendosa, Álvaro Escoto and colleagues, with an educational florence from [employer]. SUSSY-7 Assessment Billing SUSSY-7 Assessment Tool: SUSSY-7 Assessment 47523 Physical exam (Primary Care) Vital Signs: Last Vital Signs Pulse 62 10/09/24 10:19 BP 130/74 10/09/24 10:19 Pulse Ox 98 10/09/24 10:19 BMI result Body Mass Index 27.2 Tobacco/Smoking Status: Tobacco use Status Tobacco use date assessed 10/09/24 10/09/24 10:20 Patient Tobacco Use Status Current everyday Tobacco 10/09/24 10:20 e-Cigarette/Vaping Use Never Used 10/09/24 10:20 PHQ-9: PHQ-9 Score PHQ-9: Total score 0 10/09/24 10:20 Depression Screening Interpretation: Negative Thrive Assessment: Date of Thrive Assessment Date Thrive assessed 10/09/24 10/09/24 10:20 Currently or been in a relationship where the following occur: I choose not to answer Coding Level of Care Code Est Pt Prev Care 40-64y(41142) Diagnoses Physical exam Z00.00 Screening PSA (prostate specific antigen) Z12.5 Smoker F17.200 Additional Codes SUSSY-7 Assessment Billing - SUSSY-7 Assessment Tool: SUSSY-7 Assessment 87512 ([id number]) PHQ-9 - 08895 - PHQ-9 Billing: Yes ([id number]) Assessment & Plan Assessment & Plan (1) Physical exam: Code(s): Z00.00 - Encounter for general adult medical examination without abnormal findings Category: Medical (2) Screening PSA (prostate specific antigen): Code(s): Z12.5 - Encounter for screening for malignant neoplasm of prostate Category: Medical (3) Smoker: Code(s): F17.200 - Nicotine dependence, unspecified, uncomplicated Category: Social Hx Plan . Orders: Orders Complete Blood Count Auto Diff Today Z00.00 - Encounter for general adult medical examination without abnormal findings Comprehensive [place]. Panel Fast Today Z00.00 - Encounter for general adult medical examination without abnormal findings Lipid Panel Today Z00.00 - Encounter for general adult medical examination without abnormal findings TSH reflex Free T4 Today Z00.00 - Encounter for general adult medical examination without abnormal findings UA CC w/rflx Micro + Cult Today Z00.00 - Encounter for general adult medical examination without abnormal findings Prostate Specific Antigen Scr Today Z12.5 - Encounter for screening for malignant neoplasm of prostate Referrals Lung Cancer Screening Referral F17.200 - Nicotine dependence, unspecified, uncomplicated
== END 2024-10-09 11:43 | disposition home or self-care (01) ==
PROVIDERS: PCP Nurse Practitioner Family; Visit Provider Nurse Practitioner Family
DX: Z00.00 Encounter for general adult medical examination without abnormal findings (principal); Z12.5 Encounter for screening for malignant neoplasm of prostate; F17.200 Nicotine dependence, unspecified, uncomplicated

== ENCOUNTER → 2024-10-09 10:12 | Outpatient (BNVA) | payer OTHER, SELFPAY | PROVIDERS: PCP Nurse Practitioner Family; Visit Provider Nurse Practitioner Family | DX: Z00.00 Encounter for general adult medical examination without abnormal findings (principal); F17.210 Nicotine dependence, cigarettes, uncomplicated; Z12.5 Encounter for screening for malignant neoplasm of prostate | CPT/HCPCS: 96127; 99396 ==

== ENCOUNTER 2024-12-29 10:07 | Outpatient (AMB) | payer OTHER, SELFPAY ==
--- NOTE | 2024-12-29 07:51 | A.OFFVIS_ITS ---
Intake Visit Reasons: Former Smoker Allergies No Known Allergies Allergy (Verified 10/09/24 10:19) HPI HPI Former Smoker: Details: Initial visit for this 59yo smoker with a 21+PYH. Patient started smoking at age 16 for 29 years at 3ppd. He had quit from [id number] and since restarted. Currently vaping . Denies marijuana use. Denies second hand smoke exposure. Reports exposure to nickel and diesel fumes . Denies family history of lung cancer. Denies personal history of cancers. Denies chest CT in last year. . Denies recent travel outside the [place]. Denies recent respiratory illness or recent hospitalization for respiratory issues. History testing positive for COVID. Admits receiving COVID Vaccine. . Denies fever, chills, new/worsening cough, hemoptysis, hoarseness or dysphagia. Denies significant chest pain, significant dyspnea or unintentional weight loss. Patient Lung Cancer Screening Questionnaire reviewed with patient by provider. . Shared Decision Making Completed. Patient meets criteria. Discussed in detail with patient, the risk vs benefit of LDCT screening. Patient consents to proceed with scan. Discussed smoking cessation. [facility] Medical History (Updated 12/29/24 @ 10:26 by Mavis Hinkle PA-C) Hyperplastic colon polyp Dyslipidemia HTN (hypertension) Nicotine dependence, cigarettes, uncomplicated Retinal detachment Surgical History (Updated 11/13/24 @ 16:13 by Mavis Hinkle PA-C) History of cataract surgery History of colonoscopy History of surgical removal of keloid History of back surgery H/O eye surgery Family History (Updated 12/29/24 @ 10:21 by Mavis Hinkle PA-C) Father Leukemia Mother Liver failure Sister Breast cancer Social History (Updated 12/29/24 @ 10:27 by Mavis Hinkle PA-C) Housing: House Alcohol intake: current Alcohol intake frequency: a few times a week Patient Tobacco Use Status: Current everyday Tobacco user Cigarettes Per Day: 4 Years Smoked: (onset 16yo, 3/4ppd x 29yrs, 21+PYH) e-Cigarette/Vaping Use: Currently Using Second Hand Smoke Exposure: No service: No Current occupational status: employed and retired 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 - Patient meets criteria for LDCT for lung cancer screening purposes and is as ymptomatic. - Smoking cessation counseling offered. Patients can always call [phone]. - Will arrange for a LDCT scan of the chest for screening purposes at [facility]. - Risks, benefits, and alternatives were discussed in detail and the patient agrees to proceed. - Risks discussed include but are not limited to: radiation exposure, anxiety during testing and while awaiting results, false negatives, false positives and possibility of additional intervention such as further imaging or surgical procedures for benign disease. - Benefits are obviously detection of lung cancer at an early stage which can lead to improved outcomes. - Discussed the importance of screening program compliance with adherence to yearly LDCT scan as scheduled - or sooner interval scans for personalized screening regimen. - Discussed follow up plan. Our office will send a letter discussing results and if needed set up phone call and office visit based on CT findings. - Patient educated on results categorization and the management decisions for suspicious findings potentially found on the screening LDCT scan. Any patient with a Lung RADS score of 3 or 4 will be reviewed by a multidisciplinary team at [facility] to form a plan of action in regards to scan findings. - If further work up is warranted for a suspicious lung finding this will be followed by the Lung Cancer Screening program in conjunction with the Thoracic Surgery Department at [facility]. - A copy of the office note and LDCT will be sent to the patient's PCP - as well as documentation on any associated further plans of care. - Incidental findings on LDCT are the PCP's responsibility. These findings are indicated with an S finding on the LDCT Assessment. A note discussing the findings will be sent to the PCP who is then responsible for further management. - All questions answered.? Coding Level of Care Code Lung Cancer Screening G0296 Diagnoses Nicotine dependence, cigarettes, uncomplicated F17.210
== END 2024-12-29 10:43 | disposition home or self-care (01) ==
LOC: HO.HPS 10:08
PROVIDERS: PCP Nurse Practitioner Family; Visit Provider Physician Assistant Medical
DX: F17.210 Nicotine dependence, cigarettes, uncomplicated (principal)
CPT/HCPCS: G0296

== ENCOUNTER 2024-12-29 10:27 | Outpatient (REF) | payer OTHER, SELFPAY ==
--- NOTE | ~2024-12-29 | CT_ITS ---
CLINICAL HISTORY: F17.210 - Nicotine dependence, cigarettes, uncomplicated CT lung cancer screening (LDCT) Comparison: None Technique: Axial CT images of the chest using low-dose technique. Referring provider counseled the patient on shared decision-making for LDCT screening. Additional counseling was provided on smoking cessation. Effective radiation dose total: DLP 45 mGycm, CTDIvol 1.3 mGy. Findings: Lung: No emphysema. There are calcified granulomas. In the left upper lobe, there is a 8 x 10 mm ground-glass opacity with central solid component series 8, image 51. Coronary artery calcifications: Moderate Limited upper abdomen: Unremarkable Other: None Impression: LungRADS 3 - Probably benign: Recommend low dose screening Chest CT in 6 months. ##L3# Category 1: Normal; continue annual screening Category 2: Benign appearance or behavior, continue annual screening Category 3: Probably benign, [address] recommended Category 4A: Suspicious, [address] recommended; may consider PET/CT Category 4B: Suspicious, Additional diagnostics and/or tissue sampling recommended Category 4X: Suspicious, Additional diagnostics and/or tissue sampling recommended Category 0: Recalls (incomplete screen due to Incomplete coverage, Noise, Respiratory motion, Expiration, Obscured by acute abnormality) This document has been electronically signed by: Rob Roman MD on 12/29/2024 15:59:49
== END 2024-12-29 10:28 | disposition home or self-care (01) ==
LOC: HO.CT 10:27
PROVIDERS: PCP Nurse Practitioner Family; Visit Provider Physician Assistant Medical
DX: Z12.2 Encounter for screening for malignant neoplasm of respiratory organs (principal); F17.210 Nicotine dependence, cigarettes, uncomplicated
CPT/HCPCS: 71271; G0296

== ENCOUNTER → 2024-12-29 10:31 | Outpatient (BNV) | payer OTHER, SELFPAY | PROVIDERS: PCP Nurse Practitioner Family; Visit Provider Nuclear Medicine | DX: F17.210 Nicotine dependence, cigarettes, uncomplicated (principal) | CPT/HCPCS: 71271 ==

== ENCOUNTER 2025-07-09 12:29 | Outpatient (REF) | payer OTHER, SELFPAY ==
--- NOTE | ~2025-07-09 | CT_ITS ---
EXAMINATION: CT LUNG SCREENING FOLLOW UP WITHOUT IV CONTRAST HISTORY: F17.210 - Nicotine dependence, cigarettes, uncomplicated TECHNIQUE: Low dose axial images were obtained from the sternal notch to upper abdomen without IV contrast per standard departmental protocol. Sagittal and coronal reformatted images were also obtained and reviewed. One or more of the following techniques was used for dose reduction: Automated exposure control, adjustment of the mA and/or kV according to patient size, use of iterative reconstruction technique. DLP: 58 mGy-cm COMPARISON: Comparison is made with the prior examination dated 12/29/2024. FINDINGS: Lung nodules: Again seen is an approximately 10 mm groundglass nodule in the left upper lobe with a tiny central solid component (series 4, images 52-55). This is unchanged from the prior study. There is a punctate nodule in the right middle lobe (series 4, image 92) without change. No new pulmonary nodules are identified. Emphysema: none Coronary Calcification: severe Aortic Arch Calcification: none Potentially Significant Incidentals : none Additional Chest Findings: There is no pleural or pericardial effusion. No mediastinal or axillary lymphadenopathy is identified. Visualized upper abdomen: The visualized portions of the liver, spleen, and adrenals have an unremarkable unenhanced appearance. CT/CT lung screen follow up IMPRESSION: Stable 10 mm left upper lobe groundglass opacity with a tiny central solid component. The patient may resume annual low-dose screening chest CT. LUNG-RADS ASSESSMENT: Lung-RADS 2: Benign MANAGEMENT: Continue annual screening with LDCT in 12 months Category S: N/A Electronically signed by: Betito Carcamo MD 07/09/2025 01:41 PM EDT
== END 2025-07-09 12:30 | disposition home or self-care (01) ==
LOC: HO.CT 12:29
PROVIDERS: Visit Provider Physician Assistant Medical
DX: R91.1 Solitary pulmonary nodule (principal); F17.210 Nicotine dependence, cigarettes, uncomplicated
CPT/HCPCS: 71250

== ENCOUNTER → 2025-07-09 12:30 | Outpatient (BNV) | payer OTHER, SELFPAY | PROVIDERS: Visit Provider Radiology Diagnostic Radiology | DX: Z12.2 Encounter for screening for malignant neoplasm of respiratory organs (principal); Z87.891 Personal history of nicotine dependence; R91.8 Other nonspecific abnormal finding of lung field | CPT/HCPCS: 71250 ==